=== PATIENT | female | born 1965 | race Caucasian/White ===

== ENCOUNTER 2017-04-30 15:24 | Emergency (ER) | payer OTHER ==
[~2017-04-30] VITALS: Ht 175.3 cm; Wt 79.6 kg
[~2017-04-30 15:24] MED LIST: AMLODIPINE BESYL5 MG PO; ASPIRIN325 MG PO; CATAPRES0.1 MG PO; CLONAZEPAM1 MG PO; Colace PO; DEXAMETHASONE0.5 MG PO; Duragesic TD; ECOTRIN325 MG PO; Ecotrin PO; FLEXERIL10 MG PO; Feosol PO; Flexeril PO; GEMFIBROZIL600 MG PO; GLUCOPHAGE XR,500 MG PO; Glucophage PO; IRON325 M1 PO; KADIAN80 MG PO; KLONOPIN1 M1 PO; KLONOPIN1 MG PO; KLONOPIN2 MG PO; KlonoPIN PO; METFORMIN HCL500 MG PO; METHADONE5 MG PO; MINIVELLE1 EACH TD; MS Contin,Oramorph S PO; MSIR PO; MSIR15 MG PO; NEXIUM40 MG PO; Norvasc PO; OXYCODONE HCL10 MG PO; ROBITUSSIN AC,T10 ML PO; SIMVASTATIN40 MG PO; Senokot S,Pericolace PO; ZESTORETIC 20-1 EAC1; ZESTORETIC 20-1 EAC1 PO; ZESTORETIC,P1 TABLE2 PO; ZITHROMAX Z-PA250 MG PO; ZOCOR40 MG PO; Zestoretic,Prinzide PO
[2017-04-30 16:01] LABS: HEMATOCRIT 42.8 % (36.0-46.0); MCH 30.6 PG (29.0-34.0); MCHC 34.3 G/DL (30.0-36.0); MCV 89.2 FL (83-99); MEAN PLAT.VOLUME 9.4 uM^3 (9.5-12.4); PLATELET COUNT 394 K/uL (156-360); RBC DIS.WIDTH-CV 13.1 % (11.8-14.6); WHITE BLOOD COUNT 10.8 K/uL (4.1-10.2)
[2017-04-30 16:17] LABS: CHLORIDE 104 mEq/L (99-109); POTASSIUM 4.1 mEq/L (3.7-5.4); SODIUM 143 mEq/L (136-147)
[2017-04-30 16:18] LABS: GLUCOSE 115 mg/dL (70-99)
[2017-04-30 16:20] LABS: ANION GAP 17 MEQ/L (2-14)
[2017-04-30 16:22] LABS: GFR ESTIMATE (CALCULATED) 55 mL/min/
[2017-04-30 16:23] LABS: UREA NITROGEN (BUN) 15 mg/dL (9-23)
[2017-04-30 18:23] VITALS: BP 183/93
== END 2017-04-30 18:23 | disposition home or self-care (01) ==
LOC: EME 15:24
DX: M62.838 Other muscle spasm (principal); R10.13 Epigastric pain; M54.2 Cervicalgia; V49.50XA Passenger injured in collision with unspecified motor vehicles in traffic accident, initial encounter; Z85.828 Personal history of other malignant neoplasm of skin; Z85.41 Personal history of malignant neoplasm of cervix uteri; K21.9 Gastro-esophageal reflux disease without esophagitis; I10 Essential (primary) hypertension; F41.9 Anxiety disorder, unspecified; E78.5 Hyperlipidemia, unspecified; E11.9 Type 2 diabetes mellitus without complications; F32.9 Major depressive disorder, single episode, unspecified; Z79.84 Long term (current) use of oral hypoglycemic drugs; Z79.891 Long term (current) use of opiate analgesic; Z88.0 Allergy status to penicillin; Z88.8 Allergy status to other drugs, medicaments and biological substances; F17.200 Nicotine dependence, unspecified, uncomplicated
CPT/HCPCS: 72040; 80048; 85027; 99281; 99283

== ENCOUNTER 2017-09-23 21:41 | Emergency (ER) | payer OTHER ==
[~2017-09-23] VITALS: Ht 175.3 cm; Wt 90.9 kg
[2017-09-23 22:08] LABS: HEMATOCRIT 37.9 % (36.0-46.0); HEMOGLOBIN 13.1 G/DL (11.9-15.5); MCH 30.5 PG (29.0-34.0); MCHC 34.6 G/DL (30.0-36.0); MCV 88.3 FL (83-99); PLATELET COUNT 403 K/uL (156-360); RBC DIS.WIDTH-CV 13.1 % (11.8-14.6); RBC DIS.WIDTH-SD 42.3 % (39-53); RED BLOOD COUNT 4.29 M/uL (3.80-5.20); WHITE BLOOD COUNT 14.5 K/uL (4.1-10.2)
[2017-09-23 22:19] LABS: CHLORIDE 102 mEq/L (99-109); POTASSIUM 3.8 mEq/L (3.7-5.4); SODIUM 141 mEq/L (136-147)
[2017-09-23 22:21] LABS: GLUCOSE 97 mg/dL (70-99)
[2017-09-23 22:25] LABS: GFR ESTIMATE (CALCULATED) > 59 mL/min/
[2017-09-23 22:26] LABS: UREA NITROGEN (BUN) 22 mg/dL (9-23)
[2017-09-24 00:57] LABS: ALBUMIN 4.8 g/dL (3.2-4.8)
[2017-09-24 01:00] LABS: TOTAL PROTEIN 7.9 g/dL (6.4-8.3)
[2017-09-24 01:02] LABS: TOTAL BILIRUBIN 0.2 mg/dL (0.0-1.0)
[2017-09-24 01:03] LABS: ALKALINE PHOSPHATASE 83 IU/L (3-129)
[2017-09-24 01:06] LABS: ALT (GPT) 12 IU/L (3-49); AST (GOT) 16 IU/L (2-34); DIRECT BILIRUBIN 0.1 mg/dL (0.0-0.3)
[2017-09-24 01:07] LABS: LIPASE 53 U/L (1.0-51.0)
[2017-09-24 01:34] LABS: APPEARANCE CLEAR ((CLEAR)); BILIRUBIN NEGATIVE; BLOOD NEGATIVE; COLOR STRAW ((YELLOW)); GLUCOSE (STRIP) NEGATIVE; KETONES NEGATIVE; LEUKOCYTES NEGATIVE; NITRITE NEGATIVE; PROTEIN (STRIP) NEGATIVE; SPECIFIC GRAVITY 1.013 (1.000-1.030); UCUL ADDED? NO; UROBILINOGEN 0.2 MG/DL (0.2-1.0)
[2017-09-24] MEDS ORDERED: PERCOCET 5/31 TABLET PO (02:50)
[2017-09-24] MEDS ORDERED: OMNICEF300 MG PO (02:50)
[2017-09-24] MEDS ORDERED: FLEXERIL10 MG PO (02:50)
[2017-09-24] MEDS ORDERED: OXAYDO5 MG PO (02:59)
[2017-09-24 03:03] VITALS: BP 148/81
== END 2017-09-24 03:08 | disposition home or self-care (01) ==
LOC: EME 21:41
PROVIDERS: Emergency Medicine
DX: J02.9 Acute pharyngitis, unspecified (principal); S29.012A Strain of muscle and tendon of back wall of thorax, initial encounter; J20.8 Acute bronchitis due to other specified organisms; E11.9 Type 2 diabetes mellitus without complications; I10 Essential (primary) hypertension; E78.5 Hyperlipidemia, unspecified; K21.9 Gastro-esophageal reflux disease without esophagitis; F41.9 Anxiety disorder, unspecified; F32.9 Major depressive disorder, single episode, unspecified; F17.200 Nicotine dependence, unspecified, uncomplicated; Z79.84 Long term (current) use of oral hypoglycemic drugs; Z85.828 Personal history of other malignant neoplasm of skin; Z85.41 Personal history of malignant neoplasm of cervix uteri; Z88.0 Allergy status to penicillin; Z88.2 Allergy status to sulfonamides; Z88.6 Allergy status to analgesic agent; Z88.1 Allergy status to other antibiotic agents; Z88.8 Allergy status to other drugs, medicaments and biological substances
CPT/HCPCS: 71046; 80048; 80076; 81003; 83690; 85027; 87502; 87651 90; 93005; 99281; 99285